=== PATIENT | male | born 1995 | race Caucasian/White ===

== ENCOUNTER 2020-02-25 16:51 | Emergency (ER) | payer OTHER ==
[~2020-02-25] VITALS: Ht 190.5 cm; Wt 85.7 kg
[2020-02-25 17:22] VITALS: Ht 190.5 cm; Wt 85.7 kg
[2020-02-25 18:36] VITALS: BP 130/48
== END 2020-02-25 18:36 | disposition home or self-care (01) ==
LOC: ED 16:51
DX: S61.511A Laceration without foreign body of right wrist, initial encounter (principal); W22.8XXA Striking against or struck by other objects, initial encounter; Y93.89 Activity, other specified; Y92.89 Other specified places as the place of occurrence of the external cause; Y99.8 Other external cause status
CPT/HCPCS: A4570; Q0092

== ENCOUNTER 2020-02-27 11:01 | Emergency (ER) | payer OTHER ==
[~2020-02-27] VITALS: Ht 190.5 cm; Wt 82.6 kg
[2020-02-27 11:10] VITALS: Ht 190.5 cm; Wt 82.6 kg
[2020-02-27 12:54] VITALS: BP 121/83
== END 2020-02-27 12:55 | disposition home or self-care (01) ==
LOC: ED 11:01
DX: S51.811D Laceration without foreign body of right forearm, subsequent encounter (principal); X58.XXXD Exposure to other specified factors, subsequent encounter